=== PATIENT | female | born 1980 | race Caucasian/White ===

== ENCOUNTER 2018-09-19 05:59 | Inpatient (IN) | payer OTHER ==
[~2018-09-19] VITALS: Ht 157.5 cm; Wt 82.6 kg
[~2018-09-19 05:59] MED LIST: PRENATAL TABLE1 EAC3 PO; VALTREX1000 MG PO
== END 2018-09-21 12:54 | disposition home or self-care (01) | DRG 807 ==
LOC: LDR 05:59 → OB/GYN 05:59
PROC: 10E0XZZ Delivery of Products of Conception, External Approach (ICD-10-PCS; principal; 2018-09-19)
PROC: 0W8NXZZ Division of Female Perineum, External Approach (ICD-10-PCS; 2018-09-19)
PROC: 4A1HXCZ Monitoring of Products of Conception, Cardiac Rate, External Approach (ICD-10-PCS; 2018-09-19)
PROC: 4A033R1 Measurement of Arterial Saturation, Peripheral, Percutaneous Approach (ICD-10-PCS; 2018-09-19)
DX: O80 Encounter for full-term uncomplicated delivery (principal); Z37.0 Single live birth; Z3A.39 39 weeks gestation of pregnancy